=== PATIENT | male | born 1980 | race Caucasian/White ===

== ENCOUNTER 2019-01-18 14:36 | Emergency (ER) | payer BC ==
[~2019-01-18] VITALS: Ht 177.8 cm; Wt 49.0 kg
[2019-01-18 14:40] VITALS: Ht 177.8 cm; Wt 49.0 kg
[2019-01-18 15:50] VITALS: BP 136/95
== END 2019-01-18 15:50 | disposition home or self-care (01) ==
LOC: ED 14:36
DX: L03.116 Cellulitis of left lower limb (principal)
CPT/HCPCS: J0696